=== PATIENT | male | born 1975 | race Two or more races ===

== ENCOUNTER 2025-08-03 13:32 | Emergency (ER) | payer OTHER ==
[~2025-08-03] VITALS: Ht 172.7 cm; Wt 82.0 kg
[2025-08-03 13:34] VITALS: TEMP 36.9; O2SAT 99
[2025-08-03] MEDS: LIDOCAINE 5% PATCH TOP SCH (14:13)
[2025-08-03] MEDS: KETOROLAC 15MG/ML VIAL IV ONE (14:14)
[2025-08-03] MEDS: METHOCARBAMOL 500MG TABLET PO ONE (14:14)
[2025-08-03 14:42] LABS: BASOPHILS % 0.7 % (0.0-2.0); EOSINOPHILS % 3.2 % (0.0-5.0); HEMATOCRIT. 44.0 % (42.0-52.0); HEMOGLOBIN. 14.6 g/dL (14.0-18.0); LYMPHOCYTES % 38.6 % (20.0-50.0); MEAN PLATELET VOLUME 8.5 fl (7.4-10.4); MONOCYTES % 7.7 % (2.0-8.0); NEUTROPHILS % 49.8 % (40.0-76.0); PLATELET 203 x1000/uL (130-400); RED BLOOD CELL COUNT 4.44 mill/uL (4.7-6.1); RED CELL DISTRIBUTION WIDTH 13.4 % (11.6-14.6)
[2025-08-03 14:57] LABS: CREATININE 1.1 mg/dL (0.6-1.3); UREA NITROGEN BLOOD 12 mg/dL (9-23)
[2025-08-03 14:59] LABS: ASPARTATE AMINOTRANSFERASE 14 IU/L (<34); BILIRUBIN DIRECT 0.2 mg/dL (<=3.0); BILIRUBIN TOTAL 0.8 mg/dL (0.1-1.0); PROTEIN TOTAL 6.0 g/dL (6.0-8.3); TROPONIN I HIGH SENSITIVITY < 4 ng/L (3.0-53)
[2025-08-03] MEDS: MORPHINE SULFATE 4 MG/ML INJ (FOR IV/IM USE) IV ONE (15:40)
[2025-08-03 18:47] LABS: CLARITY URINE CLEAR (CLEAR); COLOR URINE YELLOW (YELLOW); GLUCOSE URINE NEGATIVE (NEGATIVE); KETONES URINE TRACE (NEGATIVE); LEUKOCYTE ESTERASE URINE NEGATIVE (NEGATIVE); NITRITE URINE NEGATIVE (NEGATIVE); OCCULT BLOOD URINE NEGATIVE (NEGATIVE); PH URINE 6.5 (4.5-8.0); PROTEIN URINE NEGATIVE (NEGATIVE); SPECIFIC GRAVITY URINE 1.012 (1.005-1.030); UROBILINOGEN URINE 0.2 E.U./dL (0.2-1.0)
[2025-08-03] MEDS: HYDROMORPHONE HCL/PF 2MG/ML INJ IV ONE (19:36)
[2025-08-03 20:05] VITALS: BP 111/71; PULSE 55; RESP 10; O2SAT 98
== END 2025-08-03 20:26 | disposition short-term general hospital (02) ==
LOC: ER 14:13 → CMPBEDREQ 08-04 10:54
DX: G89.29 Other chronic pain (principal); M54.50 Low back pain, unspecified; R06.02 Shortness of breath; I49.9 Cardiac arrhythmia, unspecified; Z98.1 Arthrodesis status
CPT/HCPCS: 80076; 80048; 81003; 83880; 83735; 85025; 84484; 36415; 71045; 72131; 93005; 96374; 96375; 99285; J1885; J1171; J2270; Z7610